=== PATIENT | female | born 1955 | race Caucasian/White ===

== ENCOUNTER 2024-11-24 13:59 | Outpatient (REF) | payer MEDICARE, OTHER, SELFPAY ==
--- NOTE | ~2024-11-24 | XR_ITS ---
EXAMINATION: XR LUMBOSACRAL SPINE CLINICAL INFORMATION: M51.369 - Other intervertebral disc degeneration, lumbar region without ... COMPARISON: None available. TECHNIQUE: 4 views of the lumbar spine, inclusive of flexion and extension views, were obtained. FINDINGS: There is a mild right convex scoliosis, apex at L4. There is a normal lumbar lordosis. Neutral view demonstrates a minimal 3 mm degenerative anterolisthesis of L2 on L3. No additional subluxations are evident. There is no fracture, compression deformity, or suspicious bone lesion evident. Moderate disc degeneration is noted at L5-S1. Mild to moderate degeneration is noted at the remaining levels. There is normal facet alignment. There are multilevel hypertrophic degenerative facet changes spanning L3-S1. Flexion and extension views demonstrate no evidence of worsening subluxation to suggest instability. There are vascular calcifications in the soft tissues. Soft tissues otherwise normal. XR/XR lumbar spine 4V min IMPRESSION: 1. No acute bony abnormalities. Mild right convex scoliosis, and moderate multilevel lumbar spondylosis. 2. No evidence of instability on flexion and extension views. Electronically signed by: Prosper Andrade MD 11/24/2024 03:47 PM EDT
== END 2024-11-24 14:00 | disposition home or self-care (01) ==
LOC: HO.HOSX 13:59
PROVIDERS: Visit Provider Neurological Surgery
DX: M51.369 Other intervertebral disc degeneration, lumbar region without mention of lumbar back pain or lower extremity pain (principal)
CPT/HCPCS: 72110; 99202

== ENCOUNTER 2024-11-24 13:59 | Outpatient (AMB) | payer MEDICARE, SELFPAY ==
[2024-11-24 14:36] VITALS: BMI 28.9
--- NOTE | 2024-11-24 14:36 | HO.SPINEOV ---
Vital Signs 11/24/24 14:36 Height 5 ft 8 in Weight 190 lb BMI 28.9 Intake Visit Reasons: LBP Intake Note: Ms. Arzola is here today c/o Low back pain and tingling down to the legs. Circus Supervisor Required: No Allergies No Known Allergies Allergy (Verified 11/24/24 14:37) Physical Exam Vital Signs: BMI result Body Mass Index 28.9 Assessment & Plan Assessment & Plan (1) Lumbar degenerative disc disease: Code(s): M51.369 - Other intervertebral disc degeneration, lumbar region without mention of lumbar back pain or lower extremity pain Category: Medical Plan: Dear colleague Thank you for referring Tg Arzola to the office today with a chief complaint of chronic low back pain. HPI: This 69-year-old female is suffering from progressive intractable low back pain that is located across the lumbar spine. The pain is associated with tingling down her legs. The tingling down her legs go posteriorly to the bottom of her feet. The symptoms are aggravated by walking and standing. The back pain is constantly present. Her sleep is interrupted due to the pain. She has tried chiropractic therapy in the past. She is too afraid to undergo injections. The following conservative treatment options were tried without success antiinflammatories, tylenol. PMH: Bilateral hip replacement Medications: None recorded Allergies: NKDA Social history: Smokes 1 pack a day Physical Exam: Height 5 8 weight 190 lb. Has pain on palpation of the lumbosacral area. Straight leg raise produces pain in her posterior legs bilaterally. No motor or objective sensory deficits Radiological Studies: MRI done at [facility] on 09/23/2024 shows moderate degenerative disc disease L4-5 with a central disc bulge. Impression/Plan: This patient is suffering from chronic back pain. I explained to her that although the MRI shows moderate changes at L4-5 a surgery may not be beneficial at all. I would like to obtain more evidence that the L4-5 disc is involved in making a determination about possible surgery. I ordered an bone SPECT scan to see if there is a high uptake at L4-5 and dynamic lumbar x-rays were ordered. She will call my office for the results and to discuss further plan. Thank you for allowing me to participate in your patients care. total time spent was 50 minutes in counseling ,coordination of plan, personal review of imaging, surgical decision making and subsequent plan Isra Pennings MD, PhD Spine Fellowship Trained Neurosurgeon Director, [facility] Orders: Orders NM bone SPECT Today M51.369 - Other intervertebral disc degeneration, lumbar region without mention of lumbar back pain or lower extremity pain XR lumbar spine 4V min Today M51.369 - Other intervertebral disc degeneration, lumbar region without mention of lumbar back pain or lower extremity pain Coding Level of Care Code New Pt Level 4 (25223) Diagnoses Lumbar degenerative disc disease M51.369
== END 2024-11-24 15:43 | disposition home or self-care (01) ==
PROVIDERS: Visit Provider Neurological Surgery
DX: M51.369 Other intervertebral disc degeneration, lumbar region without mention of lumbar back pain or lower extremity pain (principal)
CPT/HCPCS: 99204

== ENCOUNTER → 2024-11-24 15:29 | Outpatient (BNV) | payer MEDICARE, OTHER, SELFPAY | PROVIDERS: Visit Provider Radiology Diagnostic Radiology | DX: M51.369 Other intervertebral disc degeneration, lumbar region without mention of lumbar back pain or lower extremity pain (principal) | CPT/HCPCS: 72110 ==

== ENCOUNTER → 2024-12-31 09:37 | Outpatient (REF) | payer MEDICARE, SELFPAY ==
--- NOTE | ~2024-12-31 | NM_ITS ---
EXAMINATION: BONE SCAN SPECT OF THORACIC AND LUMBAR SPINE AND PLANAR IMAGES OF THORACIC AND LUMBAR SPINE CLINICAL INFORMATION: Lumbar degenerative disc changes. Low back pain lower for several years. COMPARISON: Lumbar spine x-ray 11/24/2024 TECHNIQUE: Gamma scintillation camera images of the thoracic and lumbar spine were performed 3 hours following the intravenous administration of 30 mCi Tc-99m MDP. Single photon emission tomography (SPECT) of the thoracic and lumbar spine was also performed acquiring 128 projections of 20 seconds each over 360 degrees using a noncircular orbit and an acquisition matrix of 128 x 128. Transverse, coronal and sagittal projections and a cine volume were reconstructed. CT FINDINGS: On planar images normal isotope activity seen within the dorsal lumbar and upper sacral spine. There is mild levoscoliosis of dorsolumbar spine. No abnormal activity seen within the thoracic cage. On SPECT imaging there is mild focal activity seen along the right posterior ninth and 11th costovertebral joints in dorsal spine and mild focal activity in the left L4-5 facet joint. No additional areas of activity seen. The SI joints are not imaged. NM/NM bone SPECT IMPRESSION: Mild facet joint arthropathy left 9th and 11th costovertebral junctions and left L4-5 facet joint. These are most likely secondary to degenerative arthritic changes. Electronically signed by: Alfonso Del Real MD 12/31/2024 03:05 PM [facility]
--- OUTSIDE RECORDS SUMMARY | 2024-12-31 10:43 | XMS_ITS | Clinical Summary ---
Author Organization [facility] Address [address] [place] [address] Care Team Providers Care Hot Roll Laminator Name Role Phone Jakob Richardson Primary Care Provider [phone] Social History Tobacco Use Types Packs/Day Years Used Date Smoking Tobacco: Never Assessed Comments Unknown Sex and Gender Information Value Date Recorded Sex Assigned at Not on file Legal Sex Female 8:49 EDT Gender Identity Not on file Sexual Orientation Not on file Plan of Treatment Health Maintenance Due Date Last Done Comments Hepatitis C Screen 1955 Fall Risk Screening 2019 COVID-19 Vaccine (2023-25 season) 2023 RSV Immunization ( o r 60+ Years) (1 - 1-dose 75+ series) 2029 Insurance [employer] MEDICARE Care Teams Hot Roll Laminator Relationship Specialty Start Date End Date Jakob Richardson ARNP [address] [place] [id number] PCP - General 10/23/22
--- OUTSIDE RECORDS SUMMARY | 2024-12-31 10:43 | XMS_ITS | Encounter Summary ---
Author Organization [facility] [place] [address] Care Team Providers Care Classification Clerk Name Role Phone Jareth John Primary Care Provider Encounter Details Date Type Department Care Team (Latest Contact Info) Description 12/27/2024 Interpretation Only [address] [id number] Jareth John PA [address] [place] [address] Cyst of kidney, acquired Social History Tobacco Use Types Packs/Day Years Used Date Smoking Tobacco: Every Day Cigarettes Smokeless Tobacco: Never Alcohol Use Standard Drinks/Week Comments Not Currently 0 (1 standard drink = 0.6 oz pur e alcohol) DH IPV Inpatient Questions Answer Date Recorded Does Anyone Try to Keep You From Having Contact with Others or Doing Things Outside Your Home? unable to answer (comment required) 09/23/2024 Feels Threatened by Someone unable to an swer (comment required) 09/23/2024 Feels Unsafe at Home or Work/School unab le to answer (comment required) 09/23/2024 Physical Signs of Abuse Present no 09/23/2024 Comments Unknown Sex and Gender Information Value Date Recorded Sex Assigned at Not on file Legal Sex Female 7:17 AM EST Gender Identity Not on file Sexual Orientation Not on file documented as of this encounter Plan of Treatment Not on file documented as of this encounter Procedures Procedure Name Priority Date/Time Associated Diagnosis Comments US RETROPERITONEUM LIMITED Routine 12/27/2024 9:28 AM EST Cyst of kidney, acquired documented in this encounter Results * US Retroperitoneum Limited (Known AAA or F/U) (12/27/2024 9:28 AM EST) PT CLASS O RAD ADMITDTTM [id number] [facility] PT MRN RAD INFO [id number]^Broadfoot^Mo rgan RAD EXAM DESC URETROLIM^US Retroperitoneal Limited^RIS [facility] WORKSTATION ID BVT [facility] Anatomical Region Laterality Modality Abdomen Ultrasound 12/27/2024 9:28 AM EST Impressions 12/27/2024 9:43 AM EST Bilateral renal cysts. Thank you for letting us participate in the care of this patient. If you are a health care provider and have any questions regarding this report, please contact the number above. For patients who have questions, please contact the health human services care specialist that requested your imaging first. Scar Medellin, Staff Physician Electronically Signed Final Report 12/27/2024 09:42 am Narrative 12/27/2024 9:43 AM EST Renal (Signed Final 12/27/2024 09:42 am) PATIENT INFO: ID #: [id number] : [id number] (69 yrs) Name: TG ARZOLA Visit Date: 12/27/2024 09:28 am PERFORMED BY: Attending: Scar Medellin MD Performed By: Justine Sage Referred By: Jareth John Location: [facility] SERVICE(S) PROVIDED: URETRO - Retroperitoneal Complete - [id number] INDICATIONS: renal cyst (see MRI) on right side, monitoring;N28.1 Cyst of kidney, acquired RIGHT KIDNEY: Size (cm) L: 10.4 AP: 4.4 TV: 5.7 Cortical Thickness: Normal Cortical Echogenicity: Normal Hydronephrosis: No sonographic evidence -------- Lesions: -------- # Date Location Description L AP TV (cm) 12/27/24 Cyst 1.9 1.0 1.4 LEFT KIDNEY: Size (cm) L: 10.0 AP: 4.6 TV: 5.7 Cortical Thickness: Normal Cortical Echogenicity: Normal Hydronephrosis: No sonographic evidence -------- Lesions: -------- # Date Location Description L AP TV (cm) 12/27/24 Cyst 2.2 1.2 1.9 12/27/24 Cyst 2.0 1.2 1.5 12/27/24 Cyst 1.7 2.2 1.6 Procedure Note Scar Medellin MD - 12/27/2024 Renal (Signed Final 12/27/2024 09:42 am) PATIENT INFO: ID #: [id number] (69 yrs) Name: TG ARZOLA Visit Date: 12/27/2024 09:28 am PERFORMED BY: Attending: Scar Medellin MD Performed By: Justine Chu Referred By: Jareth John Location: [facility] SERVICE(S) PROVIDED: URETRO - Retroperitoneal Complete - [id number] INDICATIONS: renal cyst (see MRI) on right side, monitoring;N28.1 Cyst of kidney, acquired RIGHT KIDNEY: Size (cm) L: 10.4 AP: 4.4 TV: 5.7 Cortical Thickness: Normal Cortical Echogenicity: Normal Hydronephrosis: No sonographic evidence -------- Lesions: -------- # Date Location Description L AP TV (cm) 12/27/24 Cyst 1.9 1.0 1.4 LEFT KIDNEY: Size (cm) L: 10.0 AP: 4.6 TV: 5.7 Cortical Thickness: Normal Cortical Echogenicity: Normal Hydronephrosis: No sonographic evidence -------- Lesions: -------- # Date Location Description L AP TV (cm) 12/27/24 Cyst 2.2 1.2 1.9 12/27/24 Cyst 2.0 1.2 1.5 12/27/24 Cyst 1.7 2.2 1.6 IMPRESSION Bilateral renal cysts. Thank you for letting us participate in the care of this patient. If you are a health care provider and have any questions regarding this report, please contact the number above. For patients who have questions, please contact the health human services care specialist that requested your imaging first. Scar Medellin, Staff Physician Electronically Signed Final Report 12/27/2024 09:42 am Jareth BECKHAM IMG US GEN ORDERABLES Final Result documented in this encounter Visit Diagnoses Diagnosis Cyst of kidney, acquired Acquired cyst of kidney documented in this encounter Care Teams Classification Clerk Relationship Specialty Start Date End Date Jareth John PA [address] [place] [address] PCP - General Family Medicine 11/26/24 documented as of this encounter
--- OUTSIDE RECORDS SUMMARY | 2024-12-31 10:43 | XMS_ITS | Encounter Summary ---
Author Organization [facility] Address [address] [place] [address] Care Team Providers Care Factory Process Workers Name Role Phone Unknown, Provider Primary Care Provider Jakob Carter Primary Care Provider [phone] Encounter Details Date Type Department Care Team (Late st Contact Info) Description 10/04/2022 Lab Requisition [facility] Pathology & Laboratory Medicine - [facility] [address] [place] [address] Ashkan Espinoza MD [address] [place] [id number] Encounter for other general examination Social History Tobacco Use Types Packs/Day Years [...] Procedure Name Priority Date/Time Associated Diagnosis Comments SURGICAL PATHOLOGY Today 10/04/2022 7:54 EDT documented in this encounter Results * SURGICAL PATHOLOGY (10/04/2022 7:54 EDT) Note to Patient The following pathology results have been interpreted by your pathologist and may be available to you before your health provider has had the opportunity to review them. Please allow time for your provider to receive these results and explore management options, if applicable. 10/08/2022 10:[address] [facility] Final Diagnosis A. DUODENUM, BIOPSY: - Acute duodenitis with reactive changes. - Helicobacter pylori organisms are seen on H&E. B. STOMACH, BIOPSY: - Antral mucosa with chronic active gastritis and reactive changes. - Oxyntic mucosa with no significant diagnostic abnormality. - Helicobacter pylori organisms are seen on H&E. C. 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 - Negative for dysplasia. 10/08/2022 10:13 [facility] Attestation By the signature below, the attending physician certifies that they have 1) personally conducted a gross and/or microscopic examination of the described specimen(s), and/or personally interpreted the results of laboratory testing of the described specimen(s), and 2) personally rendered or confirmed the above diagnosis. 10/08/2022 10:13 [facility] at 1012 EDT Clinical History Pain, history H. Pylori, history Albert's 10/08/2022 10:13 [facility] Gross Description A. Received in formalin labelled with proper patient identification (initials D, B) and A are four roper tissue fragments ranging from 0.1 x 0.1 by less than 0.1 cm to 0.3 x 0.3 x 0.2 cm. Entirely submitted in A1. B. Received in formalin labelled with proper patient identification (initials D, B) and B are three roper tissue fragments ranging from 0.2 x 0.2 x 0.1 cm to 0.7 x 0.2 x 0.2 cm. Entirely submitted in B1. C. Received in formalin labelled with proper patient identification (initials D, B) and C are three pale pérez membranous tissues ranging from 0.2 x 0.1 x 0.1 cm to 0.3 x 0.2 x 0.1 cm. Entirely submitted in C1. BHAVANI REYNOLDS(ASCP) 10/07/2022 9:07 10/08/2022 10:13 [facility] Performing Lab [facility] 10/08/2022 10:13 [facility] Scanned Images 10/08/2022 10:13 [facility] Tissue ESOPHAGEAL STRUCTURE / Unknown 10/04/2022 7:54 EDT 10/05/2022 8:30 EDT Tissue specimen (specimen) STOMACH STRUCTURE / Unknown 10/04/2022 7:54 EDT 10/05/2022 8:30 EDT Tissue specimen (specimen) ESOPHAGEAL STRUCTURE / Unknown 10/04/2022 7:54 EDT 10/05/2022 8:30 EDT us Ashkan Espinoza MD PATHOLOGY ORDERABLES Final Re sult [facility] [address] [place] [address] documented in this encounter Visit Diagnoses Diagnosis Encounter for other general examination documented in this encounter Care Teams Factory Process Workers Relationship Specialty Start Date End Date Unknown, Provider, PCP - General 09/09/14 10/22/22 Jakob Richardson ARNP [address] [place] [id number] PCP - General 10/23/22 documented as of this encounter
--- OUTSIDE RECORDS SUMMARY | 2024-12-31 10:43 | XMS_ITS | Encounter Summary ---
Author Organization [facility] Address [address] [place] [address] Care Team Providers Care Multifocal Button Inspector Name Role Phone Unknown, Provider Primary Care Provider Jakob Carter Primary Care Provider Encounter Details Date Type Department Care Team (Late st Contact Info) Description 06/24/2020 Lab Requisition [facility] Pathology & Laboratory Medicine - [facility] [address] [place] [address] Outr Resulting Lab, Provider Social History Tobacco Use Types Packs/Day Years [...] Procedure Name Priority Date/Time Associated Diagnosis Comments ZZCOVID-19 TEST [facility] PCR Today 06/23/2020 14:54 EDT COVID-19 TESTING Routine 06/23/2020 14:5 4 EDT documented in this encounter Results * COVID-19 TEST [facility] PCR (06/23/2020 14:54 EDT) Swab ENTIRE NASOPHARYNX / Unknown 06/23/2020 14:54 EDT 06/25/2020 16:01 EDT us Provider Outr Resulting Lab MICROBIOLOGY - GENER AL ORDERABLES Final Result [facility] [address] [place] [address] * COVID-19 TESTING (06/23/2020 14:54 EDT) COVID-19 rt-PCR Result Negative Negative 06/26/2020 21:09 EDT [facility] Comment: This test has not been FDA cleared or approved. This test has been authorized by FDA under an EUA for use by authorized laboratories. This test has been authorized only for detection of nucleic acid from 2019-nCoV, not for any other viruses or pathogens. This test is only authorized for the duration of the declaration that circumstances exist justifying the authorization of emergency use of in vitro diagnostic tests for detection and/or diagnosis of 2019-nCoV under section 564(b)(1) of Act, 21 U.S.C 360bbb-3(b) (1), unless the authorization is terminated or revoked sooner. Negative results do not preclude 2019-nCoV infection and should not be used as the sole basis for treatment or other patient management decisions. Negative results must be combined with clinical observations, patient history, and epidemiological information. Performed on the Intelligent In[employer]ites instrument Performing Lab [place] [facility] 06/26/2020 21:09 EDT [facility] Swab 06/23/2020 14:5 4 EDT 06/25/2020 16:01 EDT us Provider Outr Resulting Lab MICROBIOLOGY - GENER AL ORDERABLES Final Result [facility] [address] [place] [address] documented in this encounter Visit Diagnoses Not on filedocumented in this encounter Care Teams Multifocal Button Inspector Relationship Specialty Start Date End Date Unknown, Provider, PCP - General 09/09/14 10/22/22 Jakob Richardson ARNP [address] [place] [id number] PCP - General 10/23/22 documented as of this encounter
--- OUTSIDE RECORDS SUMMARY | 2024-12-31 10:43 | XMS_ITS | Clinical Summary ---
Author Organization [facility] [place] [address] Care Team Providers Care Credentialing Specialist Name Role Phone Jareth John Primary Care Provider [phone] Allergies No known active allergies Medications furosemide (Lasix) 20 mg Tablet as needed. 10/19/2020 Active terbinafine (LamISIL) 250 mg tablet Take 250 mg by mouth daily. 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 12/05/2020 Encounters Date Type Department Care Team Description 12/27/2024 Interpretation Only [address] [phone] Jareth John PA Cyst of kidney, acquired 11/26/2024 Transcribe Orders eDH Incoming Referrals [phone] Jareth John PA Spinal stenosis of lumbar region without neurogenic claudication 10/20/2024 Interpretation Only [address] [phone] Jareth John PA Encounter for screening for osteoporosis from Last 3 Months Social History Tobacco Use Types Packs/Day Years Used Date Smoking Tobacco: Every Day Cigarettes Smokeless Tobacco: Never Tobacco Cessation:Ready to Q uit: Not Asked; Counseling Given: Not Answered Alcohol Use Standard Drinks/Week Comments Not Currently [...] on file Sexual Orientation Not on file Last Filed Vital Signs Vital Sign Reading Time Taken Comments Blood Pressure 117/64 09/23/2024 4:37 PM EDT Pulse 85 09/23/2024 2:21 PM EDT Temperature 36.6 C (97.9 F) 09/23/2024 4:19 PM EDT Respiratory Rate 16 09/23/2024 4:19 PM EDT Oxygen Saturation 92% 09/23/2024 4:37 PM EDT Inhaled Oxygen Concentration - - Weight 89 kg (196 lb 4.8 oz) 09/23/2024 2:21 PM EDT Height 172.7 cm (5' 8 ) 09/23/2024 2:21 PM EDT Body Mass Index 29.85 09/23/2024 2:21 PM EDT Plan of Treatment Health Maintenance Due Date Last Done Comments CT Colonography 1954 Colonoscopy 1954 Colorectal Cancer Screening 1954 FIT DNA 1954 FIT 1954 Sigmoidoscopy (10 year) with FIT yearly 1954 Sigmoidoscopy 1954 Hepatitis C Screening 1972 Lipid Screening 1972 Pneumoccocal Vaccine: 50+ (1 of 2 - PCV) 1973 Tetanus/Diphtheria/Pertussis Vaccines (1 - Tdap) 04/14 Diabetes Screening (HgbA1C or Glucose) 1989 Breast Cancer Share Decision Needed 1994 Breast Cancer screening 1994 Zoster vaccine (1 of 2) 2004 Advance Directive 2009 Covid-19 Vaccine (1 - season) 2024 Influenza (Flu) vaccine (1 o f 1 - Influenza standard series) 10/18/2024 Bone Density Scan 10/21/2039 10/20/2024 Procedures Procedure Name Priority Date/Time Associated Diagnosis Comments US RETROPERITONEUM LIMITED Routine 12/27/2024 9:28 AM EST Cyst of kidney, acquired DXA AXIAL SKELETON (FOREARM, HIPS, PELVIS AND/OR SPINE STANDARD) Routine 10/20/2024 9:49 AM EDT Encounter for screening for osteoporosis from Last 3 Months Results * US Retroperitoneum Limited (Known AAA or F/U) (12/27/2024 9:28 AM EST) PT CLASS O RAD ADMITDTTM [id number] RAD PT MRN RAD MD INFO [id number]^Broadfoot^Mo rgan RAD EXAM DESC URETROLIM^US Retroperitoneal Limited^RIS RAD WORKSTATION ID [id number] RAD Anatomical Region Laterality Modality Abdomen Ultrasound 12/27/2024 9:28 AM EST Impressions 12/27/2024 9:43 AM EST Bilateral renal cysts. Thank you for letting us participate in the care of this patient. If you are a health care provider and have any questions regarding this report, please contact the number above. For patients who have questions, please contact the health primary care coordinator that requested your imaging first. Scar Medellin, Staff Physician Electronically Signed Final Report 12/27/2024 09:42 am Narrative 12/27/2024 9:43 AM EST Renal (Signed Final 12/27/2024 09:42 am) PATIENT INFO: ID #: [id number] (69 yrs) Name: TG ARZOLA Visit Date: 12/27/2024 09:28 am PERFORMED BY: Attending: Scar Medellin MD Performed By: Justine Sage Referred By: Jareth John Location: [facility] SERVICE(S) PROVIDED: URETRO - Retroperitoneal Complete - [id number] INDICATIONS: renal cyst (see MRI) on right [...] Justine Sage Referred By: Jareth John Location: [facility] SERVICE(S) PROVIDED: URETRO - Retroperitoneal Complete - [id number] INDICATIONS: renal cyst (see MRI) on right [...] who have questions, please contact the health primary care coordinator that requested your imaging first. Scar Medellin, Staff Physician Electronically Signed Final Report 12/27/2024 09:42 am us Jareth Broadfoot PA IMG US GEN ORDERABLES Final Result * DXA Central Spine, Hip, and/or Whole Body (Standard) (10/20/2024 9:49 AM EDT) PT CLASS O RAD ADMITDTTM [id number] RAD PT [facility] MD INFO [id number]^Broadfoot^ Jareth RAD EXAM DESC XDXAC^BD Procedure (DEXA)^RIS [facility] WORKSTATION ID [id number] [facility] Anatomical Region Laterality Modality C-spine, Hip N/A Radiographic Korina ging 10/20/2024 9:49 AM EDT Impressions 10/20/2024 10:23 AM EDT Osteopenia in the left forearm. ___ Prevent Fractures! PATIENTS NOT ON TREATMENT: For patients with osteopenia, *the fracture risk calculated by FRAX is displayed below*. Offer treatment for osteoporosis (calcium, vitamin D, and medication) if: * T less than or equal to -2.5, after excluding or treating secondary causes * FRAX gives a 10-year risk of hip fracture greater than or equal to 3% or major osteoporotic fracture (MOF) greater than or equal to 20% * Fragility fracture, regardless of T score (fracture without trauma, or from trauma equivalent to falling from standing height or less) If not treating, repeat DXA at the following intervals: * T greater than or equal to -1(normal): Repeat DXA in 10-15 years * T -1.0 to -1.5 (mild osteopenia): Repeat DXA in 10-15 years * T -1.5 to 2.0 (moderate osteopenia): Repeat DXA in 5 years * T -2.0 to -2.5 (severe osteopenia): Repeat DXA in 2 years The bone density raw data are listed below. Bone density raw data: Thank you for letting us participate in the care of this patient. If you are a health care provider and have any questions regarding this report, please contact the number below. For patients who have questions please contact the health primary care coordinator that requested your imaging first. Electronically signed by: Vick Gallegos MD, [facility] ([phone]), at 10/20/2024 10:23 AM Narrative 10/20/2024 10:23 AM EDT EXAMINATION: BD Procedure (DEXA) CLINICAL HISTORY: screen for osteoporosis;Z13.820 Encounter for screening for osteoporosis TECHNIQUE: Scans were acquired at the lumbar spine, LEFT forearm. COMPARISON: None FINDINGS: Bone mineral density in the lumbar spine L1-L4 is 1.162 g/sq cm with T score 1.0. There is a 5.3% decrease in bone mineral density compared to 2008. Bone mineral density in the left forearm is 0.498 g/sq cm with T score -1.3. Procedure Note Vick Gallegos MD - 10/20/2024 EXAMINATION: BD Procedure (DEXA) CLINICAL HISTORY: screen for osteoporosis;Z13.820 Encounter for screeningfor osteoporosis TECHNIQUE: Scans were acquired at the lumbar spine, LEFT forearm. COMPARISON: None FINDINGS: Bone mineral density in the lumbar spine L1-L4 is 1.162 g/sq cm with Tscore 1.0. There is a 5.3% decrease in bone mineral density compared to 2008. Bone mineral density in the left forearm is 0.498 g/sq cm with T score-1.3. IMPRESSION Osteopenia in the left forearm. ___ Prevent Fractures! PATIENTS NOT ON TREATMENT: For patients with osteopenia, *the fracture risk calculated by FRAX isdisplayed below*. Offer treatment for osteoporosis (calcium, vitamin D, and medication)if: * T less than or equal to -2.5, after excluding or treating secondarycauses * FRAX gives a 10-year risk of hip fracture greater than or equal to 3%or major osteoporotic fracture (MOF) greater than or equal to 20% * Fragility fracture, regardless of T score (fracture without trauma, orfrom trauma equivalent to falling from standing height or less) If not treating, repeat DXA at the following intervals: * T greater than or equal to -1(normal): Repeat DXA in 10-15 years * T -1.0 to -1.5 (mild osteopenia): Repeat DXA in 10-15 years * T -1.5 to 2.0 (moderate osteopenia): Repeat DXA in 5 years * T -2.0 to -2.5 (severe osteopenia): Repeat DXA in 2 years The bone density raw data are listed below. Bone density raw data: Thank you for letting us participate in the care of this patient. If youare a health care provider and have any questions regarding this report,please contact the number below. For patients who have questions please contactthe health primary care coordinator that requested your imaging first. 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
== END ==
LOC: HO.NUCMED 09:37
PROVIDERS: Visit Provider Neurological Surgery
DX: M51.362 Other intervertebral disc degeneration, lumbar region with discogenic back pain and lower extremity pain (principal)
CPT/HCPCS: 78803; A9503

== ENCOUNTER → 2024-12-31 09:40 | Outpatient (BNV) | payer MEDICARE, SELFPAY | PROVIDERS: Visit Provider Radiology Diagnostic Radiology | DX: M51.360 Other intervertebral disc degeneration, lumbar region with discogenic back pain only (principal) | CPT/HCPCS: 78803 ==